=== PATIENT | male | born 1955 | race Caucasian/White ===

== ENCOUNTER → 2017-07-17 | Emergency (ER) | payer OTHER, BC ==
[~2017-07-17] VITALS: Ht 172.7 cm; Wt 111.1 kg
[~2017-07-17] MED LIST: NORVASC5 MG PO; SYMBICORT 16010.2 GM PO
== END | disposition home or self-care (01) ==
LOC: ER 09:09
DX: M54.5 Low back pain (principal)

== ENCOUNTER 2018-01-02 12:37 | Emergency (ER) | payer OTHER, BC ==
[~2018-01-02] VITALS: Ht 172.7 cm; Wt 103.9 kg
== END 2018-01-02 16:06 | disposition home or self-care (01) ==
LOC: ER 12:37
DX: S80.02XA Contusion of left knee, initial encounter (principal); M12.562 Traumatic arthropathy, left knee; M25.562 Pain in left knee; W18.09XA Striking against other object with subsequent fall, initial encounter; Y93.89 Activity, other specified; Y92.018 Other place in single-family (private) house as the place of occurrence of the external cause; Y99.8 Other external cause status

== ENCOUNTER 2018-06-14 13:12 | Emergency (ER) | payer OTHER, BC ==
[~2018-06-14] VITALS: Ht 172.7 cm; Wt 112.0 kg
[2018-06-14] MEDS ORDERED: ASPIR 8181 MG PO (13:24)
[2018-06-14] MEDS ORDERED: PREVACID15 MG (13:24)
[2018-06-14] MEDS ORDERED: TEMAZEPAM30 MG PO (13:28)
[2018-06-14] MEDS ORDERED: ESCITALOPRAM OX20 MG PO (13:29)
== END 2018-06-14 16:10 | disposition home or self-care (01) ==
LOC: ER 13:12
DX: M54.5 Low back pain (principal)

== ENCOUNTER 2019-10-22 13:37 | Emergency (ER) | payer OTHER, BC ==
[~2019-10-22] VITALS: Ht 172.7 cm; Wt 122.5 kg
[~2019-10-22 13:37] MED LIST changes: +ASPIR 8181 MG PO; +ESCITALOPRAM OX20 MG PO; +PREVACID15 MG; +TEMAZEPAM30 MG PO
== END 2019-10-22 19:03 | disposition home or self-care (01) ==
LOC: ER 13:37
DX: N40.1 Benign prostatic hyperplasia with lower urinary tract symptoms (principal); N39.0 Urinary tract infection, site not specified; M54.5 Low back pain; R10.2 Pelvic and perineal pain; I70.0 Atherosclerosis of aorta

== ENCOUNTER 2019-11-13 12:10 | Outpatient (CLI) | payer OTHER, BC | END 2019-11-13 12:39 | disposition home or self-care (01) | LOC: RAD 12:10 | PROVIDERS: ATTEND Orthopaedic Surgery | DX: M54.5 Low back pain (principal); R10.84 Generalized abdominal pain; M25.551 Pain in right hip; M25.552 Pain in left hip | CPT/HCPCS: 72148 ==